=== PATIENT | female | born 1965 | race Caucasian/White ===

== ENCOUNTER 2020-12-25 08:39 | Emergency (ER) | payer MEDICAID ==
[~2020-12-25] VITALS: Ht 160 cm; Wt 59.0 kg
[~2020-12-25 08:39] MED LIST: CYCL0.05 EACHEYE; PANT40TA2 PO; SUCR1SUS5 PO
[2020-12-25 09:53] LABS: Urine Bacteria NONE SEEN /hpf (None Seen); Urine Blood 1+ /uL (Negative); Urine Specific Gravity 1.007 (1.001-1.035); Urine WBC 1 /hpf (0 - 5)
[2020-12-25 09:57] LABS: Basophils # (auto) 0 10 ^3/uL (0-0.2); Basophils % (auto) 0.6 % (0.0-2.0); Eosinophils # (auto) 0.2 10 ^3/uL (0-0.8); Eosinophils % (auto) 3.7 % (0.0-7.0); Hematocrit 40.6 % (36.0-46.0); Hemoglobin 13.8 g/dL (12.2-16.2); Lymphocytes # (auto) 0.6 10 ^3/uL (0.4-5.4); Lymphocytes % (auto) 10.4 % (10.0-50.0); Mean Corpuscular Hemoglobin 29.7 pg (28.0-32.0); Mean Corpuscular Hgb Conc. 34.1 g/dL (32.0-36.0); Mean Corpuscular Volume 87.2 fL (80.0-100.0); Monocytes # (auto) 0.6 10 ^3/uL (0-1.3); Monocytes % (auto) 10.5 % (0.0-12.0); Neutrophils # (auto) 4.1 10 ^3/uL (1.6-8.6); Neutrophils % (auto) 74.8 % (37.0-80.0); Nucleated Red Blood Cells % 0.1 %; Platelet Count (auto) 224 10^3/uL (140-450); Red Blood Cells 4.66 10^6/uL (4.0-5.20); Red Cell Distribution Width 16.1 % (11.8-14.3); White Blood Cell 5.5 10^3/uL (4.4-10.8)
[2020-12-25 10:12] LABS: Albumin 3.4 g/dL (3.4-5.0); Calcium 8.8 mg/dL (8.5-10.1)
[2020-12-25 10:16] LABS: Bilirubin, Total 0.4 mg/dL (0.2-1.0); Total Protein 7.3 g/dL (6.4-8.2)
[2020-12-25 14:47] VITALS: BP 123/65
== END 2020-12-25 14:48 | disposition home or self-care (01) ==
LOC: ER 08:39
DX: U07.1 COVID-19 (principal); R53.1 Weakness; J45.909 Unspecified asthma, uncomplicated; K21.9 Gastro-esophageal reflux disease without esophagitis; Z32.02 Encounter for pregnancy test, result negative; Z87.442 Personal history of urinary calculi
CPT/HCPCS: 36415; 76700; 80053; 81001; 81025; 85025

== ENCOUNTER 2021-01-08 11:16 | Emergency (ER) | payer MEDICAID ==
[~2021-01-08] VITALS: Ht 160 cm; Wt 59.4 kg
[2021-01-08 11:16] VITALS: BP 110/67
== END 2021-01-08 12:17 | disposition home or self-care (01) ==
LOC: ER 11:16
DX: L23.9 Allergic contact dermatitis, unspecified cause (principal); K21.9 Gastro-esophageal reflux disease without esophagitis; J45.909 Unspecified asthma, uncomplicated; Z87.442 Personal history of urinary calculi; Z88.2 Allergy status to sulfonamides; Z88.6 Allergy status to analgesic agent; Z88.8 Allergy status to other drugs, medicaments and biological substances
CPT/HCPCS: 73630

== ENCOUNTER 2021-01-31 09:22 | Emergency (ER) | payer MEDICAID ==
[~2021-01-31] VITALS: Ht 160 cm; Wt 59.0 kg
[2021-01-31 09:28] VITALS: BP 120/50
== END 2021-01-31 11:12 | disposition left against medical advice (07) ==
LOC: ER 09:22
DX: R09.89 Other specified symptoms and signs involving the circulatory and respiratory systems (principal); Z53.21 Procedure and treatment not carried out due to patient leaving prior to being seen by health care provider

== ENCOUNTER 2021-03-17 14:08 | Emergency (ER) | payer MEDICAID ==
[~2021-03-17] VITALS: Ht 160 cm; Wt 58.1 kg
[2021-03-17 15:51] VITALS: BP 109/70
== END 2021-03-17 16:52 | disposition home or self-care (01) ==
LOC: ER 14:08
DX: M65.4 Radial styloid tenosynovitis [de Quervain] (principal); J45.909 Unspecified asthma, uncomplicated; K21.9 Gastro-esophageal reflux disease without esophagitis; Z88.6 Allergy status to analgesic agent; Z88.2 Allergy status to sulfonamides; Z79.899 Other long term (current) drug therapy; Z87.442 Personal history of urinary calculi; Z98.890 Other specified postprocedural states

== ENCOUNTER 2021-12-16 15:22 | Emergency (ER) | payer MEDICAID ==
[~2021-12-16] VITALS: Ht 157.5 cm; Wt 59.0 kg
[2021-12-16 16:47] VITALS: BP 124/56
== END 2021-12-16 17:22 | disposition home or self-care (01) ==
LOC: ER 15:22
DX: S93.402A Sprain of unspecified ligament of left ankle, initial encounter (principal); K21.9 Gastro-esophageal reflux disease without esophagitis; J45.909 Unspecified asthma, uncomplicated; Z79.899 Other long term (current) drug therapy; Z88.6 Allergy status to analgesic agent; Z88.2 Allergy status to sulfonamides; Z88.8 Allergy status to other drugs, medicaments and biological substances; W18.39XA Other fall on same level, initial encounter; Y93.89 Activity, other specified; Y92.89 Other specified places as the place of occurrence of the external cause; Y99.8 Other external cause status
CPT/HCPCS: 29515